=== PATIENT | male | born 1990 | race Caucasian/White ===

== ENCOUNTER 2016-06-17 12:37 | Emergency (ER) | payer MEDICAID ==
[~2016-06-17] VITALS: Ht 177.8 cm; Wt 106.6 kg
[2016-06-17 12:56] VITALS: BP 132/80
[2016-06-17] MEDS ORDERED: HYDROcodone-ACET 10/325MG TAB PO ONE (14:45)
== END 2016-06-17 14:58 | disposition home or self-care (01) ==
LOC: ER 12:46
DX: S93.402A Sprain of unspecified ligament of left ankle, initial encounter (principal); W01.0XXA Fall on same level from slipping, tripping and stumbling without subsequent striking against object, initial encounter; Y93.89 Activity, other specified; Y99.8 Other external cause status; Y92.89 Other specified places as the place of occurrence of the external cause
CPT/HCPCS: 73610